=== PATIENT | female | born 1955 | race Caucasian/White ===

== ENCOUNTER → 2017-09-06 | Outpatient (CLI) | payer BC ==
[~2017-09-06] MED LIST: IOHEXOL 240 MG/ML 50ML VIAL. ONE; IOHEXOL 240 MG/ML 50ML VIAL. PO ONE; IOHEXOL 300 MG/ML 75 ML VIAL. IV ONE
--- NOTE | 2017-09-06 12:37 | RAD ---
CT of the abdomen and pelvis with IV contrast 09/06/2017 INDICATION: Abdominal bloating. Right lower quadrant pelvic pain. History of colon cancer. Prior partial colectomy. COMPARISON STUDY: None available TECHNIQUE: Multidetector CT imaging of the abdomen and pelvis was obtained following the administration of IV contrast. The partially visualized lung bases demonstrate mild left lingular atelectasis or minimal infiltrate. There is a small hypodensity in the left hepatic lobe, measuring 6 mm in diameter with nonspecific attenuation characteristics. Second hypodensity is seen in the more inferior left hepatic lobe measuring 1 cm in diameter. Attenuation characteristics are suggestive of a small hepatic cyst. Recommend comparison with prior CT exams to evaluate stability. Cholelithiasis is noted. The gallbladder is otherwise grossly unremarkable. The adrenal glands are within normal limits. The spleen is unremarkable. Probable small cyst is seen in the inferior pole of the right kidney measuring 5 mm in diameter, also related to small to characterize by CT. The pancreas is grossly unremarkable. There is no evidence of bowel obstruction. Prior right-sided colectomy noted. Bladder is unremarkable. Uterus and adnexa demonstrate no gross abnormality. No free fluid or free air seen in the abdomen or pelvis. No evidence of acute osseous abnormality is seen. IMPRESSION: 1. No evidence of acute intra-abdominal reality is identified. 2. 2 small hypodense lesions in the left hepatic lobe, likely small cysts. A single small hypodense lesion, inferior right kidney. This also most likely represents a small cyst, but is too small to characterize. 3. Minimal left lingular atelectasis versus less likely infiltrate CT DOSING PQRS STATEMENT: One or more of the following individualized dose reduction techniques were utilized for this examination: 1. Automated exposure control 2. Adjustment of the mA and/or kV according to patient size 3. Use of iterative reconstruction technique Electronically signed by: Primo Martinez MD (09/06/2017 12:34 PM) [id number]
== END | disposition home or self-care (01) ==
LOC: CT 08:10
PROVIDERS: ATTEND Family Medicine
DX: K45.8 Other specified abdominal hernia without obstruction or gangrene (principal); Z85.038 Personal history of other malignant neoplasm of large intestine
CPT/HCPCS: 74177; Q9966; Q9967

== ENCOUNTER → 2019-08-18 | Outpatient (CLI) | payer BC ==
[~2019-08-18] MED LIST changes: -IOHEXOL 240 MG/ML 50ML VIAL. ONE; -IOHEXOL 240 MG/ML 50ML VIAL. PO ONE; -IOHEXOL 300 MG/ML 75 ML VIAL. IV ONE; +IOHEXOL 350 MG/ML 100 ML VIAL. IV ONE
--- NOTE | 2019-08-18 15:01 | RAD ---
Examination: Unilateral venous Doppler. Technique: Ultrasound evaluation of the left lower extremity was performed from the groin to the upper calf with moe scale, spectral and color doppler evaluation. Indication: Leg swelling Comparison: None Findings: There is normal venous flow and compressibility of left common femoral vein, femoral vein, popliteal vein, and visualized proximal calf veins. Impression: No evidence for deep vein thrombosis of left lower extremity from the level of the calf veins to the groins. Electronically signed by: Tien Kiran MD (08/18/2019 2:58 PM) [id number]
--- NOTE | 2019-08-18 15:10 | RAD ---
AP and Lateral Views of the Chest 08/18/2019 12:00 AM Indication: Reason: / Spl. Instructions: / History: Comparison: none Findings: There is no focal consolidation or infiltrate identified. Heart size is normal. There is no evidence of pneumothorax or pleural effusion. No acute osseous abnormalities are identified. Impression: No evidence of acute cardiopulmonary process. Electronically signed by: Primo Martinez MD (08/18/2019 3:07 PM) [id number]
--- NOTE | 2019-08-18 15:14 | RAD ---
Exam: CT chest with contrast INDICATION: Dyspnea TECHNIQUE: Sequential axial images through the chest obtained following the administration of 75 mL of Omnipaque 300 IV contrast. Sagittal and coronal reformatted images were reconstructed from the axial data and reviewed. 3-D reformatted images were reconstructed from the axial data and reviewed. Comparisons: Chest x-ray same day FINDINGS: Visualized portions of the thyroid are unremarkable. No enlarged mediastinal lymph nodes are identified. Heart size is normal. No pericardial effusion. Thoracic aorta has a normal course and caliber. Pulmonary artery is not enlarged. No pulmonary embolus identified within the main, lobar or segmental pulmonary arteries. Airways are patent. Mild bronchial wall thickening is noted. Mild centrilobular emphysematous change noted probably at the upper lungs. 6 mm nodule in the right lower lobe series 5 image 110. No pleural effusion or thickening. Visualized upper abdomen is unremarkable. No suspicious osseous lesions or acute fractures. IMPRESSION: 1. No pulmonary embolus identified within the main, lobar or segmental pulmonary arteries. 2. Mild bronchial wall thickening, may relate to bronchitis. 3. A 6 mm nodule in the right lower lobe. In a low-risk patient no further follow-up imaging is recommended. In a high-risk patient optional one-year follow-up CT can be performed. Exposure: One or more of the following in the visualized dose reduction techniques were utilized for this examination: 1. Automated exposure control 2. Adjustment of the MA and/or KV according to patient size 3. Use of iterative of reconstructive technique Electronically signed by: Marian Schafer MD (08/18/2019 3:12 PM) [id number]
[2019-08-18 15:33] LABS: CALCIUM 8.2 mg/dL (8.5-10.1); CREATININE 0.8 mg/dL (0.6-1.0); GFR 72.7; POTASSIUM 3.2 mmol/L (3.5-5.1)
[2019-08-18 15:56] LABS: BASO % 0 % (0-3); EOS # 0.3 x10^3/uL (0.0-0.7); EOS % 4 % (0-3); HEMATOCRIT 38.4 % (36.0-47.0); HEMOGLOBIN 12.7 g/dL (12.0-15.5); LYMPH % 32 % (24-48); MEAN CORPUSCULAR HEMOGLOBIN 29 pg (25-35); MEAN CORPUSCULAR HGB CONC 33 g/dL (31-37); MEAN CORPUSCULAR VOLUME 89 fL (79-100); MONO # 0.6 x10^3/uL (0.0-1.1); MONO % 9 % (0-9); NEUT # 3.4 x10^3uL (1.8-7.7); NEUT % 54 % (31-73); PLATELET COUNT 200 x10^3/uL (140-400); RED BLOOD COUNT 4.33 x10^6/uL (3.50-5.40); RED CELL DISTRIBUTION WIDTH 15.3 % (11.5-14.5); WHITE BLOOD COUNT 6.3 x10^3/uL (4.0-11.0)
== END ==
LOC: DXRAD 14:01
PROVIDERS: ATTEND Family Medicine
DX: R91.1 Solitary pulmonary nodule (principal); R06.09 Other forms of dyspnea; M79.89 Other specified soft tissue disorders; M54.16 Radiculopathy, lumbar region; F41.9 Anxiety disorder, unspecified
CPT/HCPCS: 36415; 71046; 71275; 80048; 85025; 93971; Q9967